=== PATIENT | male | born 1945 | race Hispanic/Latino ===

== ENCOUNTER 2019-02-21 00:13 | Inpatient (IN) | payer SELFPAY ==
[2019-02-21] MEDS ORDERED: Ondansetron PF 4 MG/2 ML Vial ONE (00:43)
[2019-02-21] MEDS ORDERED: Piperacillin/Tazobactam 4.5 GM VIAL ONE (00:43)
[2019-02-21] MEDS ORDERED: Acetaminophen 500 MG TAB ONE (00:43)
[2019-02-21] MEDS ORDERED: Ibuprofen 200 MG TAB ONE (00:43)
[2019-02-21 01:03] LABS: Bilirubin Negative (Negative); Blood, Urine Negative (Negative); Clarity CLEAR (Clear); Glucose, Urine (Dipstick) Negative (Negative); Leukocyte Negative (Negative); Nitrite Negative (Negative); Protein, Urine (Dipstick) Negative (Neg-Trace); Specific Gravity, Urine 1.018 (1.002-1.036); Urobilinogen 0.2 mg/dL (0.2-1.0)
[2019-02-21 01:10] LABS: Hemoglobin 16.3 g/dL (14.0-18.0); Mean Corpuscular HGB CONC 34.1 g/dL (32.0-36.0); Mean Corpuscular Volume 99.6 fL (78.0-98.0); RBC Distribution Width 11.4 % (11.5-14.5); White Blood Cell (WBC) Count 8.5 thou/uL (4.8-10.8)
[2019-02-21 01:18] LABS: ALT (SGPT) 18 U/L (8-55); AST (SGOT) 22 U/L (5-34); Albumin 4.1 g/dL (3.4-4.8); Alkaline Phosphatase 70 U/L (40-150); Anion Gap 14 mmol/L (10-20); BUN (Urea Nitrogen) 12 mg/dL (8.4-25.7); Bilirubin, Total 0.6 mg/dL (0.2-1.2); Calc. Creatinine Clearance 0 mL/min (70-130); Calcium 8.7 mg/dL (7.8-10.44); Carbon Dioxide 20 mmol/L (23-31); Chloride 104 mmol/L (98-107); Estimated GFR-MDRD 66; Glucose 134 mg/dL (83-110); Potassium 3.5 mmol/L (3.5-5.1); Protein, Total 7.1 g/dL (5.8-8.1); Sodium 134 mmol/L (136-145)
[2019-02-21 01:29] LABS: #Lymphocytes 0.9 thou/uL (1.20-3.40); #Monocytes 0.3 thou/uL (0.11-0.59); #Neutrophils 7.3 thou/uL (1.40-6.50); %Basophils 0.1 % (0.0-1.0); %Eosinophils 0.3 % (0.0-10.0); %Lymphocytes 10.1 % (21.0-51.0); %Neutrophils 85.6 % (42.0-75.0); Mean Platelet Volume 9.3 fL (7.4-10.4); Platelet Count 117 thou/uL (130-400); Platelet Morphology Comment Appears Decreased
[2019-02-21] MEDS ORDERED: Ondansetron ODT 4 MG TAB SL PRN (03:09)
[2019-02-21] MEDS ORDERED: Sodium Chloride 0.9% 1,000 ML IV SCH (03:09)
[2019-02-21] MEDS ORDERED: HYDROcodone/Acetaminophen 5/325 mg Tablet PO PRN ×3 (03:09→06:59)
[2019-02-21] MEDS ORDERED: Ondansetron PF 4 MG/2 ML Vial IVP PRN ×2 (03:09→06:59)
[2019-02-21] MEDS ORDERED: Acetaminophen 325 MG TAB PO PRN ×2 (03:09→06:59)
[2019-02-21 03:57] VITALS: BMI 25.0
[2019-02-21] MEDS ORDERED: Senokot S 8.6-50 MG TAB PO PRN (06:59)
[2019-02-21] MEDS ORDERED: Ondansetron ODT 4 MG TAB PO PRN (06:59)
[2019-02-21] MEDS ORDERED: Cepastat Lozenges 1 LOZ PO PRN (06:59)
[2019-02-21] MEDS ORDERED: Bisacodyl 10 MG SUPP PR PRN (06:59)
[2019-02-21] MEDS ORDERED: Calcium Carbonate 500 MG ChewTAB PO PRN (06:59)
[2019-02-21] MEDS ORDERED: Loratadine 10 MG TAB PO PRN (06:59)
[2019-02-21] MEDS ORDERED: Diabetic Tussin 200 MG/10 ML UDCUP PO PRN (06:59)
[2019-02-21] MEDS ORDERED: Artificial Tears 18 DROP/0.9 ML EA EYE PRN (06:59)
[2019-02-21] MEDS ORDERED: Sodium Chloride 0.65% Nasal 44 ML BOT EA NARE PRN (06:59)
[2019-02-21] MEDS ORDERED: Zolpidem Tartrate 5 MG TAB PO PRN (06:59)
[2019-02-21] MEDS ORDERED: Loperamide HCl 2 MG CAP PO PRN (06:59)
--- NOTE | 2019-02-21 07:27 | RAD ---
EXAM: Portable chest PROVIDED CLINICAL HISTORY: Chest pain COMPARISON: None FINDINGS: Cardiac silhouette is upper limits normal in size likely least partially on the basis of portable grey hnique. Patchy bibasilar airspace opacity likely reflects subsegmental atelectasis given lung hypoinflation. No lobar consolidation, pleural fluid or pneumothorax apparent. Vascular calcification is seen. IMPRESSION: No definite evidence for an acute cardiopulmonary process.
[2019-02-21] MEDS: cefTRIAXone\\ROCEPHIN 1 GM in Sodium Chloride 0.9% 100 ML IVPB SCH (08:34)
[2019-02-21] MEDS: Sodium Chloride 0.9% 1,000 ML IV SCH ×2 (08:35→17:39)
[2019-02-21] MEDS: Famotidine 20 MG TAB PO SCH ×2 (08:42→20:45)
[2019-02-21] MEDS: Saccharomyces boulardii 250 MG CAP PO SCH (08:43)
[2019-02-21] MEDS: guaiFENesin ER 600 MG TAB PO SCH ×2 (08:44→20:45)
[2019-02-21] MEDS ORDERED: Enoxaparin Sodium 40 MG/0.4 ML SYRINGE SC SCH (09:00)
[2019-02-21] MEDS ORDERED: Prevnar 13-Val Conj/PF 0.5 ML SYRINGE IM ONE (09:00)
--- NOTE | 2019-02-21 12:42 | HP ---
PRIMARY CARE PHYSICIAN: [facility] Call admission. REASON FOR ADMISSION: Sepsis. HISTORY OF PRESENT ILLNESS: A 73-year-old male, who speaks Frisian only. He has family member present at bedside, who provided history and helped me for interpretation. The patient was having acute onset of fever with chills yesterday. He was having dry cough. He was experiencing mild chest discomfort with coughing. He was having nausea and 1 episode of vomiting. He was also having headache. He denies any sore throat. He denies any skin rash. He denies any sick exposure. He denies any recent travel. He had no constipation or diarrhea or urinary tract infection symptoms. He did not have any upper respiratory infection or any allergies. With these symptoms, he presented to emergency room. He was initially hypotensive, tachycardic as well as febrile. His routine blood test was consistent and supportive of sepsis. In the emergency room, he received antibiotic therapy with Zosyn. IV fluid and ibuprofen were given, and Tylenol was given, and subsequently, he was admitted to telemetry floor. REVIEW OF SYSTEMS: CONSTITUTIONAL: Negative for weight loss or gain, ability to conduct usual activities. SKIN: Negative for rash, itching. EYES: Negative for double vision, pain. ENT/MOUTH: Negative for nose bleeding, neck stiffness, pain, tenderness. CARDIOVASCULAR: Negative for palpitations, dyspnea on exertion, orthopnea. RESPIRATORY: Negative for shortness of breath, wheezing, cough, hemoptysis, fever or night sweats. GASTROINTESTINAL: Negative for poor appetite, abdominal pain, heartburn, nausea, vomiting, constipation, or diarrhea. GENITOURINARY: Negative for urgency, frequency, dysuria, nocturia. MUSCULOSKELETAL: Negative for pain, swelling. NEUROLOGIC/PSYCHIATRIC: Negative for anxiety, depression. ALLERGY/IMMUNOLOGIC: Negative for skin rash, bleeding tendency. Please see my HPI for pertinent positives and negatives. All other review of systems reviewed and negative except as mentioned in HPI. PAST MEDICAL HISTORY: Reviewed and negative. PAST SURGICAL HISTORY: Reviewed and negative. PAST PSYCHIATRIC HISTORY: Reviewed and negative. SOCIAL HISTORY: The patient drinks alcohol socially. He denies any smoking. He denies any other illicit drug abuse. FAMILY HISTORY: No strong family history of premature coronary artery disease, stroke, or cancer. ALLERGIES: NO KNOWN DRUG ALLERGIES. CURRENT HOME MEDICATIONS: The patient is not taking any prescribed or non-prescribed medication. EMERGENCY ROOM COURSE: The patient has received Tylenol and ibuprofen, Zosyn 4.5 g and IV fluid 2 L. PHYSICAL EXAMINATION: VITAL SIGNS: On arrival, blood pressure 155/85, pulse 124, respiratory rate 22, temperature 103.1, saturation 94% on room air. Weight 76.7 kg. GENERAL: The patient is currently alert, awake, in no obvious acute distress. HEENT: Head, normocephalic and atraumatic. Eyes; pupils are round and reactive to light. Extraocular muscle is intact. ENT; oropharynx is within normal limits. Moist mucous membrane. No oral lesion. No pharyngeal erythema. No exudate. NECK: Supple. No JVD. No lymphadenopathy. No meningeal signs of irritation. LUNGS: Clear to auscultation without any rhonchi or rales, though air entry is reduced. CARDIAC: S1 and S2. Regular. Tachycardia. No murmur. No gallop. No rub. ABDOMEN: Soft. Bowel sounds present. Nontender. Nondistended. No organomegaly. No mass. No suprapubic tenderness. BACK: No CVA tenderness. EXTREMITIES: Upper extremities; passive movement of all joints is normal. Lower extremities; no edema. No calf tenderness. SKIN: No skin rash. HEMATOLOGIC: No lymphadenopathy. NEUROLOGIC: Nonfocal examination. PSYCHIATRIC: Normal affect. SIGNIFICANT LABORATORY DATA: EKG is showing normal sinus rhythm, sinus tachycardia. Chest x-ray is showing no acute cardiopulmonary process. CBC; WBC 8.5, hemoglobin 16.3, platelet 117 with left shift. BMP; sodium 134, potassium 3.5, chloride 104, carbon dioxide 20, BUN 12, creatinine 1.09, glucose 134, calcium 8.7. Lactic acid 1.9. LFT; AST 22, ALT 18, alkaline phosphatase 70, albumin 4.1. Urinalysis, normal. ASSESSMENT AND PLAN: 1. Sepsis. The patient has sepsis criteria with left shift, high-grade fever, and tachycardia. Source of infection; we are suspecting atypical pneumonia versus bronchitis. Viral etiology is also possible. At this point, the patient will require hospitalization. We will continue IV fluid and treat empirically with Rocephin and Levaquin. We will follow up on culture result. 2. Acute bronchitis/atypical pneumonia. At this point, we will continue Rocephin 1 g q.24 hour, Levaquin 750 mg daily, IV fluid, and Mucinex 600 mg twice daily. 3. Mild thrombocytopenia, likely related with sepsis. We will monitor CBC tomorrow. 4. Macrocytosis without anemia, likely related with his alcohol use. 5. Mild hyponatremia. We will repeat BMP tomorrow. 6. Deep venous thrombosis prophylaxis. Lovenox 40 mg subcutaneously daily. 7. Gastrointestinal prophylaxis. Pepcid 20 mg p.o. b.i.d. CODE STATUS: The patient is full code. The patient's son is surrogate decision maker. DISPOSITION PLAN: Based on clinical course, likely within 24 to 48 hours. Plan of care was discussed with the family member. Job ID: [id number]
[2019-02-21] MEDS: hydrALAZINE 20 MG/ML VIAL SLOW IVP PRN (22:14)
[2019-02-22] MEDS: Sodium Chloride 0.9% 1,000 ML IV SCH (03:51)
[2019-02-22 05:38] LABS: #Lymphocytes 1.3 thou/uL (1.20-3.40); #Monocytes 0.6 thou/uL (0.11-0.59); #Neutrophils 3.5 thou/uL (1.40-6.50); %Basophils 0.4 % (0.0-1.0); %Eosinophils 0.6 % (0.0-10.0); %Lymphocytes 23.6 % (21.0-51.0); %Monocytes 10.3 % (0.0-10.0); %Neutrophils 65.1 % (42.0-75.0); Hemoglobin 14.7 g/dL (14.0-18.0); Mean Corpuscular HGB CONC 32.8 g/dL (32.0-36.0); Mean Corpuscular Hemoglobin 33.3 pg (27.0-31.0); Mean Platelet Volume 9.1 fL (7.4-10.4); Platelet Count 101 thou/uL (130-400); RBC Distribution Width 11.5 % (11.5-14.5); Red Blood Cell (RBC) Count 4.42 mill/uL (4.70-6.10); White Blood Cell (WBC) Count 5.4 thou/uL (4.8-10.8)
[2019-02-22 06:02] LABS: Anion Gap 11 mmol/L (10-20); BUN (Urea Nitrogen) 7 mg/dL (8.4-25.7); Calc. Creatinine Clearance 88 mL/min (70-130); Calcium 8.2 mg/dL (7.8-10.44); Carbon Dioxide 19 mmol/L (23-31); Chloride 109 mmol/L (98-107); Estimated GFR-MDRD Greater than 90; Glucose 96 mg/dL (83-110); Potassium 3.4 mmol/L (3.5-5.1); Sodium 136 mmol/L (136-145)
[2019-02-22] MEDS ORDERED: Potassium Chloride 20 MEQ TAB PO SCH (06:15)
[2019-02-22] MEDS: Saccharomyces boulardii 250 MG CAP PO SCH (08:49)
[2019-02-22] MEDS: cefTRIAXone\\ROCEPHIN 1 GM in Sodium Chloride 0.9% 100 ML IVPB SCH (08:49)
[2019-02-22] MEDS: Famotidine 20 MG TAB PO SCH ×2 (08:50→20:03)
[2019-02-22] MEDS: guaiFENesin ER 600 MG TAB PO SCH ×2 (08:50→20:03)
[2019-02-22] MEDS: hydrALAZINE 20 MG/ML VIAL SLOW IVP PRN (16:50)
--- NOTE | 2019-02-22 21:51 | PDOC.PN ---
- Subjective Encounter Start Date: 02/22/19 Encounter Start Time: 10:00 pt had low grade fever last night, he has no new complaints - Objective Resuscitation Status - Order Detail: 02/21/19 06:56 Resuscitation Status Routine Resuscitation Status: FULL: Full Resuscitation MAR Reviewed: Yes Vital Signs & Weight: Vital Signs (12 hours) Temp Pulse Resp BP BP BP Pulse Ox 02/22/19 20:00 98.4 F 86 18 171/99 H 96 02/22/19 16:50 55 L 189/109 H 02/22/19 16:00 97.7 F 16 189/109 H 95 02/22/19 11:37 98.0 F 77 16 170/100 H 97 Weight Weight 167 lb 3.2 oz I&O: 02/21/19 02/22/19 02/23/19 06:59 06:59 06:59 Intake Total 2962 400 Output Total 300 Balance 2662 400 Result Diagrams: 02/22/19 04:52 02/22/19 04:52 Phys Exam - Physical Examination Constitutional: NAD HEENT: PERRLA, moist MMs, sclera anicteric Neck: no JVD, supple Respiratory: no wheezing, no rales, no rhonchi Cardiovascular: RRR, no significant murmur, no rub Gastrointestinal: soft, non-tender, no distention, positive bowel sounds Musculoskeletal: no edema, pulses present Neurological: non-focal, normal sensation, moves all 4 limbs Lymphatic: no nodes Psychiatric: normal affect, A&O x 3 Skin: no rash, normal turgor Dx/Plan (1) Atypical pneumonia Code(s): J18.9 - PNEUMONIA, UNSPECIFIED ORGANISM Status: Acute (2) Hypokalemia Code(s): E87.6 - HYPOKALEMIA Status: Acute (3) Hyponatremia Code(s): E87.1 - HYPO-OSMOLALITY AND HYPONATREMIA Status: Acute (4) Sepsis Code(s): A41.9 - SEPSIS, UNSPECIFIED ORGANISM Status: Acute (5) Thrombocytopenia Code(s): D69.6 - THROMBOCYTOPENIA, UNSPECIFIED Status: Acute (6) Macrocytosis without anemia Code(s): D75.89 - OTHER SPECIFIED DISEASES OF BLOOD AND BLOOD-FORMING ORGANS Status: Chronic - Plan cont current plan of care, plan discussed w/ family, continue antibiotics * replace potassium * continue rocephin and levaquin * if afebrile by tomorrow, possible discharge tomorrow * medication reviewed as below * symptomatic treatment. Review of Systems - Review of Systems ENT: negative: Ear Pain, Ear Discharge, Nose Pain, Nose Discharge, Nose Congestion, Mouth Pain, Mouth Swelling, Throat Pain, Throat Swelling, Other Respiratory: negative: Cough, Dry, Shortness of Breath, Hemoptysis, SOB with Excertion, Pleuritic Pain, Sputum, Wheezing Cardiovascular: negative: chest pain, palpitations, orthopnea, paroxysmal nocturnal dyspnea, edema, light headedness, other Gastrointestinal: negative: Nausea, Vomiting, Abdominal Pain, Diarrhea, Constipation, Melena, Hematochezia, Other Genitourinary: negative: Dysuria, Frequency, Incontinence, Hematuria, Retention , Other Musculoskeletal: negative: Neck Pain, Shoulder Pain, Arm Pain, Back Pain, Hand Pain, Leg Pain, Foot Pain, Other - Medications/Allergies Allergies/Adverse Reactions: Allergies Allergy/AdvReac Type Severity Reaction Status Date / Time No Known Allergies Allergy Verified 02/21/19 03:49 Medications: Current Medications Acetaminophen (Tylenol) 650 mg PO Q4H PRN PRN Reason: Headache/Fever/Mild Pain (1-3) Last Admin: 02/22/19 00:08 Dose: 650 mg Hydrocodone Bitart/Acetaminophen ([place] 5/325) 1 tab PO Q4H PRN PRN Reason: Moderate Pain (4-6) Albuterol/Ipratropium (Duoneb) 3 ml NEB [id number] PRN PRN Reason: SOB &/or Wheezing Artificial Tears (Tears Naturale) 2 drop EA EYE PRN PRN PRN Reason: Dry Eyes Bisacodyl (Dulcolax) 10 mg [place] DAILYPRN PRN PRN Reason: Constipation Calcium Carbonate (Tums) 1,000 mg PO Q4H PRN PRN Reason: Heartburn or Indigestion Famotidine (Pepcid) 20 mg PO BID [facility] Last Admin: 02/22/19 20:03 Dose: 20 mg Guaifenesin (Mucinex) 600 mg PO Q12HR [facility] Last Admin: 02/22/19 20:03 Dose: 600 mg Guaifenesin (Robitussin Sf) 200 mg PO Q4H PRN PRN Reason: Cough Hydralazine HCl (Apresoline) 10 mg SLOW IVP Q4H PRN PRN Reason: SBP > 180 and HR < 70 Last Admin: 02/22/19 16:50 Dose: 10 mg Ceftriaxone Sodium 1 gm/ (Sodium Chloride) 100 mls @ 200 mls/hr IVPB 0800 [facility] Last Admin: 02/22/19 08:49 Dose: 100 mls Levofloxacin 750 mg/ Device 150 mls @ 100 mls/hr IVPB 0900 [facility] Last Admin: 02/22/19 09:40 Dose: 150 mls Loperamide HCl (Imodium) 2 mg PO PRN PRN PRN Reason: Diarrhea/Loose Stools Loratadine (Claritin) 10 mg PO DAILYPRN PRN PRN Reason: Sinus Symptoms Ondansetron HCl (Zofran Odt) 4 mg PO Q6H PRN PRN Reason: Nausea/Vomiting Ondansetron HCl (Zofran) 4 mg IVP Q6H PRN PRN Reason: Nausea/Vomiting Saccharomyces Boulardii (Florastor) 250 mg PO DAILY [facility] Last Admin: 02/22/19 08:49 Dose: 250 mg Senna/Docusate Sodium (Senokot S) 2 tab PO BID PRN PRN Reason: Constipation Sodium Chloride ([place] Nasal [place] 0.65%) 0 ml EA NARE QIDPRN PRN PRN Reason: Nasal Congestion Sodium Chloride (Flush - Normal Saline) 10 ml IVF Q12HR [facility] Last Admin: 02/22/19 20:04 Dose: 10 ml Sodium Chloride (Flush - Normal Saline) 10 ml IVF PRN PRN PRN Reason: Saline Flush Throat Lozenges (Cepastat Lozenges) 1 laci PO Q2H PRN PRN Reason: Sore Throat Zolpidem Tartrate (Ambien) 5 mg PO HSPRN PRN PRN Reason: Insomnia
[2019-02-23 07:53] VITALS: BP 164/102; TEMP 98.2
[2019-02-23] MEDS ORDERED: Amlodipine 10 MG TAB PO SCH (09:00)
[2019-02-23] MEDS: guaiFENesin ER 600 MG TAB PO SCH (09:06)
[2019-02-23] MEDS: Famotidine 20 MG TAB PO SCH (09:06)
[2019-02-23] MEDS: Saccharomyces boulardii 250 MG CAP PO SCH (09:06)
[2019-02-23] MEDS: cefTRIAXone\\ROCEPHIN 1 GM in Sodium Chloride 0.9% 100 ML IVPB SCH (09:06)
--- NOTE | 2019-02-23 10:49 | DIS ---
DATE OF ADMISSION: 02/21/2019 DATE OF DISCHARGE: 02/23/2019 PRIMARY CARE PHYSICIAN: [facility] call admission. DISCHARGE DISPOSITION: Home. PRIMARY DISCHARGE DIAGNOSES: 1. Atypical pneumonia. 2. Hypertension. 3. Hypokalemia. 4. Hyponatremia. 5. Sepsis, improved. 6. Thrombocytopenia. 7. Macrocytosis without anemia. SECONDARY DISCHARGE DIAGNOSIS: None. PRIMARY PROCEDURE/OPERATION: None. RADIOLOGICAL INVESTIGATIONS: Chest x-ray normal. SIGNIFICANT LABORATORY DATA: WBC 5.4, hemoglobin 14.7, and platelets 101. Sodium 136, potassium 3.4, BUN 7, creatinine 0.80, and calcium 8.2. LFT normal. Urinalysis normal. Blood culture negative. DISCHARGE MEDICATIONS: 1. Amlodipine 10 mg daily. 2. Folic acid 1 mg daily. 3. Vitamin B12, 1000 mcg p.o. daily. 4. Levaquin 500 mg p.o. daily for 5 more days. CONTRAINDICATION: None. CODE STATUS: Full code. INPATIENT CULTURAL ANTHROPOLOGY PROFESSOR: None. ALLERGIES: NO KNOWN DRUG ALLERGIES. DISCHARGE PLAN: Posthospital, the patient was instructed to make an appointment with primary care physician in 1 or 2 weeks. HOSPITAL COURSE: A 73-year-old male with no significant past medical history, who was brought to hospital for fever and chills. I admitted this patient and so, please see my HPI for further details. The patient was having some mild dry cough. His chest x-ray was normal. His urinalysis was normal. All other blood test was unremarkable. He was meeting sepsis criteria with tachycardia and fever. He was suspected for atypical pneumonia. We treated him with Rocephin and Levaquin while in hospital. Subsequently, he became afebrile for at least more than 24 hours. He is completely asymptomatic. While in hospital, we noted that he has new onset of hypertension and that is why we started amlodipine on his regimen. He has microcytosis and that is why we started folic acid and vitamin B12 therapy. I have seen and examined the patient at bedside today. REVIEW OF SYSTEMS: All review of systems reviewed with him and negative. Plan of care discussed with the patient and family member with the help of family member, funeral director. DISCHARGE PHYSICAL EXAMINATION: VITAL SIGNS: Currently, temperature 98.2, pulse 70, respiratory rate 16, saturation is 98% on room air, and blood pressure 164/102. Weight 167 pounds. GENERAL: The patient is currently alert and awake. No obvious acute distress. HEENT: Head; normocephalic, atraumatic. Eyes; pupils round, reactive to light. Extraocular muscle intact. ENT, oropharynx within normal limits. Moist mucous membranes. No oral lesion. No pharyngeal erythema. No exudate. NECK: Supple. No JVD. No thyromegaly. No carotid bruit. LUNGS: Clear to auscultation without any rhonchi or rales. CARDIAC: S1, S2. Regular without any murmur. ABDOMEN: Soft and benign. EXTREMITIES: No edema. NEUROLOGIC: Nonfocal examination. Overall, the patient is medically stable for discharge today. Job ID: [id number]
== END 2019-02-23 14:30 | disposition home or self-care (01) | DRG 871 ==
LOC: ERS 00:13 → 2SE 01:35 → T4-B 02-22 16:15
PROVIDERS: ADMIT Hospitalist; ATTEND Hospitalist
DX: A41.9 Sepsis, unspecified organism (principal); J18.9 Pneumonia, unspecified organism; E87.1 Hypo-osmolality and hyponatremia; J20.9 Acute bronchitis, unspecified; D69.6 Thrombocytopenia, unspecified; E87.6 Hypokalemia; D75.89 Other specified diseases of blood and blood-forming organs
CPT/HCPCS: 36415; 71045; 80048; 80053; 81003; 83605; 83735; 85025; 87040; 90471; 90670; 93005; 94760; 96365; 96366; 96368; G0009; J0360; J0696; J1650; J1956; J2405; J2543; J3370; J3490